=== PATIENT | female | born 2005 | race Caucasian/White ===

== ENCOUNTER → 2024-11-09 | Outpatient (CLI) | payer OTHER ==
[~2024-11-09] MED LIST: LAMICTAL100 MG; XYREM500 MG/ML
== END | disposition home or self-care (01) ==
LOC: ORTHO 00:39
PROVIDERS: ATTEND Orthopaedic Surgery
DX: S52.135D Nondisplaced fracture of neck of left radius, subsequent encounter for closed fracture with routine healing (principal); M24.522 Contracture, left elbow; X58.XXXD Exposure to other specified factors, subsequent encounter